=== PATIENT | male | born 1960 | race Two or more races ===

== ENCOUNTER 2023-07-01 11:42 | Emergency (ER) | payer BC, OTHER ==
[~2023-07-01] VITALS: Ht 167.6 cm; Wt 68.1 kg
[2023-07-01 12:27] LABS: Basophils # (auto) 0.1 10 ^3/uL (0-0.2); Basophils % (auto) 0.9 % (0.0-2.0); Eosinophils # (auto) 0.2 10 ^3/uL (0-0.8); Eosinophils % (auto) 1.9 % (0.0-7.0); Hematocrit 44.6 % (41.0-53.0); Hemoglobin 15.2 g/dL (13.5-17.5); Lymphocytes # (auto) 1.7 10 ^3/uL (0.4-5.4); Lymphocytes % (auto) 19.9 % (10.0-50.0); Mean Corpuscular Hgb Conc. 34.2 g/dL (32.0-36.0); Mean Corpuscular Volume 96.7 fL (80.0-100.0); Monocytes # (auto) 0.4 10 ^3/uL (0-1.3); Monocytes % (auto) 5.3 % (0.0-12.0); Neutrophils # (auto) 6.1 10 ^3/uL (1.6-8.6); Nucleated Red Blood Cells % 0.1 %; Red Blood Cells 4.61 10^6/uL (4.5-5.90); Red Cell Distribution Width 14.4 % (11.8-14.3); White Blood Cell 8.4 10^3/uL (4.4-10.8)
[2023-07-01 12:45] LABS: Alanine Aminotransferase 28 U/L (7-40); Albumin 4.1 g/dL (3.2-4.8); Alkaline Phosphatase 54 U/L (46-116); Anion Gap 12 (5-15); Aspartate Aminotransferase 25 U/L (13-40); BUN/Creatinine Ratio 17.8 (10.0-20.0); Blood Urea Nitrogen 16 mg/dL (9-23); Calcium 8.4 mg/dL (8.5-10.1); Carbon Dioxide 19 mmol/L (20-30); Chloride 110 mmol/L (98-107); Glucose 141 mg/dL (74-106); Potassium 4.6 mmol/L (3.5-5.1); Sodium 141 mmol/L (136-145)
[2023-07-01 12:46] LABS: Bilirubin, Total 0.3 mg/dL (0.2-1.0); Total Protein 6.4 g/dL (5.7-8.2)
[2023-07-01 13:40] VITALS: BP 93/56; PULSE 62; RESP 19; TEMP 98.2; O2SAT 98
== END 2023-07-01 13:58 | disposition left against medical advice (07) ==
LOC: EDBD 11:42 → ER 11:42
DX: R55 Syncope and collapse (principal); I11.0 Hypertensive heart disease with heart failure; I50.89 Other heart failure
CPT/HCPCS: 36415; 71046; 80053; 84484; 85025; 93005

== ENCOUNTER 2023-12-25 15:03 | Emergency (ER) | payer BC ==
[~2023-12-25] VITALS: Ht 175.3 cm; Wt 85.2 kg
[2023-12-25 15:37] VITALS: BP 90/94; PULSE 96; RESP 16; O2SAT 95
== END 2023-12-25 20:15 | disposition left against medical advice (07) ==
LOC: ER 15:03
DX: R03.1 Nonspecific low blood-pressure reading (principal); Z53.21 Procedure and treatment not carried out due to patient leaving prior to being seen by health care provider